=== PATIENT | male | born 1995 | race Caucasian/White ===

== ENCOUNTER 2024-07-23 13:32 | Emergency (ER) | payer OTHER ==
--- OUTSIDE RECORDS SUMMARY | 2024-07-23 13:39 | XMS REPORT | Continuity of Care Document ---
Author Name Unknown Address [address] [facility] [address] [place] [id number] [facility] thconnect Address [address] [facility] [address] [place] [address] Care Team Providers Care [employer] Name Role Phone Margret Eden NP Primary Care Physician Unava ilMargret Canales Attending Clinician Unavailable Selbst Gabe LAWSON Attending Clinician + [phone] GABE GARCIA Attending Clinician Unavail able PHOEN[place] GIBBS Attending Clinician Unavailable [place] GIBBS Attending Clinician Unavailable Doctor Unassigned, [place] Attending Clinician U navailJOSE Cruz Attending Clinician UnavailJose Samson MD Attending Clinician [phone] CHERIE MENDEZ Attending Clinician Unavailable Cherie Mendez MD Attending Clinician [phone] Sabas Barbour Attending Clinician [phone] SABAS WEBB Attending Clinician Unavailable Kyler Ring MD Attending Clinician [phone] KYLER RING Attending Clinician UnavailANDI Lugo Attending Clinician Unavailable [place] B Attending Clinician [phone] RASHAD GALLOWAY Attending Clinician Unavailable Rashad Gonzalez Attending Clinician [phone] PHOENIX GIBBS Admitting Clinician Unavailable JOSE STERN Admitting Clinician UnavailJose Samson MD Admitting Clinician [phone] SABAS WEBB Admitting Clinician Unavailable ANDI ABURTO Admitting Clinician Unavailable Payers Payer Name Policy Type Policy Number Effective Date Expirati on Date Source [employer] \\T\\ STAR [employer] MEDICAID Medicaid [id number] 2019 00:00:00 [facility] (Medicaid) [id number] 2019 00:00:00 [facility] (Medicaid) [id number] 2019 [facility] [id number] 2019 00:00:00 [facility] Problems Condition Name Condition Details Condition Category Status Onset Date Resolution Date Last Treatment Date Treating Clinician Comments Source Obesity (BMI 30-39.9) Obesity (BMI 30-39.9) Disease Active - 00:00: 00 [facility] Closed displaced fracture of nasal bone, initial encounter Closed displaced fracture of nasal bone, initial encounter Disease Active 07-22 00:00: 00 [facility] [id number] Hypertrigl yceridemia Problem [facility] Asthma without status asthmaticu s Active asthma Problem [facility] Obesity Obesity Problem [facility] Migraine Migraine Problem [facility] Depression Depression Problem [facility] Memory problem Memory problem Problem [facility] No known active problems No known active problems Disease [facility] Allergies, Adverse Reactions, Alerts Allergy Name Allergy Type Status Severity Reaction(s) Onset Date Inactive Date Treating Clinician Comments Source Amoxicil spencer Propensi ty to adverse reaction s Active Rash 06-16 00:00: 00 Brea Parker AMOXICIL SPENCER DRUG INGREDI Active Low Rash 06-16 00:00: 00 [facility] AMOXICIL SPENCER DRUG INGREDI Active Rash 03-22 00:00: 00 [facility] Amoxicil spencer Propensi ty to adverse reaction s Active Rash 03-22 00:00: 00 [facility] ALLERGIE S NOT ON FILE SYSTEMIC Active [facility] amoxicil spencer amoxicil spencer Active Bumps on tongue, rash [facility] Social History Social Habit Start Date Stop Date Quantity Comments Source History of Tobacco Use [facility] Sex Assigned At [facility] Gender identity Roberto Parker Sexual orientation [facility] Alcohol intake 2023-11-10 00:00:00 2023-11-10 00:00:00 Lifetime non-drinker (finding) [facility] History of Social function 2023-07-24 00:00:00 2023-07-24 00:00:00 [facility] Exposure to SARS-CoV-2 (event) 2023-03-08 00:00:00 2023-03-18 14:27:00 Not sure [facility] Tobacco use and exposure 2022-11-25 00:00:00 2022-11-25 00:00:00 Smokeless tobacco non-user [facility] Smoking Status Start Date Stop Date Source Tobacco smoking consumption unknown [facility] Never smoked tobacco [facility] Medications Ordered Medication Name Filled Medication Name Start Date Stop Date Current Medication? Ordering Clinician Indication Dosage Frequency Signature (SIG) Comments Components Source doxycycline (Monodox) 100 MG capsule doxycycline (Monodox) 100 MG capsule 06-16 00:00: 00 06-26 23:59 :00 No 100mg Q.5D Take 1 capsule by mouth in the morning and 1 capsule in the evening. Do all this for 10 days. Take with at least 8 ounces (large glass) of water, do not lie down for 30 minutes after. Brea Parker lactated ringers IV infusion 1,000 mL 07-24 22:00: 00 Yes 1000mL at 42 mL/hr, 1,000 mL, IV Infusion, CONTINUOUS , Starting on Ammy 07/24/23 at 1700, Until Discontinu ed, Routine, PACU [facility] HYDROmorpho ne (DILAUDID) injection 0.2 mg 07-24 21:56: 36 Yes .2mg 0.2 mg, Slow IV Push, Q5MIN PRN, 4 doses, Starting on Ammy 07/24/23 at 1656, Until Discontinu ed, Routine, Pain (scale 7-10), PACU
Us e approved by (Faculty): PACU USE -ANESTHESI A SERVICE-HY DROMORPHON E INJECTIONS [facility] FENTanyl PF (SUBLIMAZE (PF)) injection 25 mcg 07-24 21:56: 36 Yes 25ug 25 mcg, Slow IV Push, Q5MIN PRN, 4 doses, Starting on Ammy 07/24/23 at 1656, Until Discontinu ed, Routine, Pain (scale 4-6), PACU [facility] ondansetron (ZOFRAN (PF)) injection 4 mg 07-24 21:56: 36 Yes 4mg 4 mg, Slow IV Push, PRN, 1 dose, Starting on Ammy 07/24/23 at 1656, Until Discontinu ed, Routine, Nausea and Vomiting (N/V), PACU [facility] bacitracin 500 unit/g ointment 30 g tube 07-24 21:26: 00 07-24 23:32 :34 No PRN, Starting on Fri07/24/23 at 1626, Until Ammy 07/24/23 at 1832, Routine, Intra-op [facility] cocaine (NUMBRINO) 4 % nasal solution 07-24 21:25: 00 07-24 23:32 :34 No PRN, Starting on Fri07/24/23 at 1625, Until Ammy 07/24/23 at 1832, Routine, Intra-op [facility] acetaminoph en 500 mg tablet 07-24 00:00: 00 Yes [id number] 1000mg Take 2 tablets by mouth every 8 (eight) hours. [facility] HYDROcodone -acetaminop hen (NORCO) 5-325 mg tablet 07-24 00:00: 00 07-30 04:59 :00 No [id number] 1{tbl} Take 1 tablet by mouth every 6 (six) hours as needed for Pain (scale 7-10) for up to 5 days. Indication s: acute pain [facility] acetaminoph en (TYLENOL) tablet 1,000 mg 07-18 02:45: 00 07-18 02:44 :00 No 1000mg 1,000 mg, Oral, ONCE, 1 dose, On Ammy 07/17/23 at 2145, [facility]ILYN [facility] clindamycin in 5 % dextrose (CLEOCIN) 900 mg/50 mL IV piggyback RTU 900 mg 07-18 02:30: 00 07-18 03:01 :00 No 900mg 900 mg, IV Piggyback, ONCE, 1 dose, On Ammy 07/17/23 at 2130, Administer over 30 Minutes, 50 mL
Reas on for Anti-Infec tive: Documented Infection< br>Documen luli Infection Site: Skin / Soft Tissue
Duration of Therapy: 7 days
Re stricted use approved by: ED PROVIDER [facility] bacitracin 500 unit/gram ointment 07-18 00:00: 00 Yes [id number] Apply to affected area(s) 2 (two) times daily. [facility] clindamycin 300 mg capsule 07-18 00:00: 00 07-26 04:59 :00 No [id number] 300mg Take 1 capsule by mouth 4 (four) times daily for 7 days. [facility] sodium chloride 0.65 % nasal spray 07-18 00:00: 00 07-26 04:59 :00 No [id number] 1{spray } Use 1 [place] in each nostril as needed for Other (clearing nasal draiange) for up to 7 days. [facility] triamcinolo ne acetonide (KENALOG) injection 40 mg 03-18 22:15: 00 03-18 21:14 :00 No [id number] 40mg [facility] meloxicam 15 mg tablet 11-25 00:00: 00 12-26 05:59 :00 No [id number] 15mg Take 1 tablet by mouth in the morning for 30 days. [facility] albuterol 90 mcg/actuati on inhaler 2021-11 00:00: 00 Yes INHALE 1 PUFF BY MOUTH EVERY 6 HOURS NEEDED [facility] Ventolin HFA 108 (90 Base) MCG/ACT Ventolin HFA 108 (90 Base) MCG/ACT 2021-11 00:00: 00 No 1{puff_ as_need ed} QID Ventolin HFA 108 (90 Base) MCG/ACT Ventolin HFA 108 (90 Base) MCG/ACT Ventolin HFA 108 (90 Base) MCG/ACT 2021-11 00:00: 00 No 1{puff_ as_need ed} QID Ventolin HFA 108 (90 Base) MCG/ACT ibuprofen (IBU) tablet 800 mg 2021-11 15:00: 00 11-05 14:52 :00 No 800mg 800 mg, Oral, ONCE, 1 dose, On Fri11/05/22 at 0900, [facility] No known medications 2021-11 08:42: 40 No No known medication s [facility] No known medications 03-22 21:23: 46 No [facility] Nebulizer/T ubing/Mouth piece - Nebulizer/T ubing/Mouth piece - 03-16 00:00: 00 No Nebulizer/ Tubing/Dede thpiece - Nebulizer/T ubing/Mouth piece - Nebulizer/T ubing/Mouth piece - 03-16 00:00: 00 No Nebulizer/ Tubing/Dede thpiece - Nebulizer/T ubing/Mouth piece - Nebulizer/T ubing/Mouth piece - 03-16 00:00: 00 No Nebulizer/ Tubing/Dede thpiece - Nebulizer/T ubing/Mouth piece - Nebulizer/T ubing/Mouth piece - 03-16 00:00: 00 No Nebulizer/ Tubing/Dede thpiece - Nebulizer/T ubing/Mouth piece - Nebulizer/T ubing/Mouth piece - 03-16 00:00: 00 No Nebulizer/ Tubing/Dede thpiece - Nebulizer/T ubing/Mouth piece - Nebulizer/T ubing/Mouth piece - 03-16 00:00: 00 No Nebulizer/ Tubing/Dede thpiece - Nebulizer/T ubing/Mouth piece - Nebulizer/T ubing/Mouth piece - 03-16 00:00: 00 No Nebulizer/ Tubing/Dede thpiece - ProAir HFA ProAir HFA 03-05 00:00: 00 Yes Margret Vernonok 2 puffs as needed [facility] ProAir HFA 108 (90 Base) MCG/ACT ProAir HFA 108 (90 Base) MCG/ACT 03-05 00:00: 00 No 2{puffs _as_nee ded} QID ProAir HFA 108 (90 Base) MCG/ACT Albuterol Sulfate Albuterol Sulfate Yes Margret Blackford 1 ml as needed [facility] Singulair Singulair Yes Margret Vernonok 1 tablet in the evening [facility] Singulair 10 MG Singulair 10 MG No 1{table t_in_th e_eveni ng} QD Singulair 10 MG Albuterol Sulfate (5 MG/ML) 0.5% Albuterol Sulfate (5 MG/ML) 0.5% No 3{ml_as _needed } TID Albuterol Sulfate (5 MG/ML) 0.5% ProAir HFA 108 (90 Base) MCG/ACT ProAir HFA 108 (90 Base) MCG/ACT No 2{puffs _as_nee ded} QID ProAir HFA 108 (90 Base) MCG/ACT Singulair 10 MG Singulair 10 MG No 1{table t_in e_eveni ng} QD Singulair 10 MG Albuterol Sulfate (5 MG/ML) 0.5% Albuterol Sulfate (5 MG/ML) 0.5% No 3{ml_as _needed } TID Albuterol Sulfate (5 MG/ML) 0.5% ProAir HFA 108 (90 Base) MCG/ACT ProAir HFA 108 (90 Base) MCG/ACT No 2{puffs _as_nee ded} QID ProAir HFA 108 (90 Base) MCG/ACT Symbicort 160-4.5 MCG/ACT Symbicort 160-4.5 MCG/ACT No Symbicort 160-4.5 MCG/ACT ProAir HFA 108 (90 Base) MCG/ACT ProAir HFA 108 (90 Base) MCG/ACT No ProAir HFA 108 (90 Base) MCG/ACT Albuterol Sulfate (5 MG/ML) 0.5% Albuterol Sulfate (5 MG/ML) 0.5% No 3{ml_as _needed } TID Albuterol Sulfate (5 MG/ML) 0.5% Singulair 10 MG Singulair 10 MG No 1{table t_in e_eveni ng} QD Singulair 10 MG Symbicort 160-4.5 MCG/ACT Symbicort 160-4.5 MCG/ACT No 2{puffs } BID Symbicort 160-4.5 MCG/ACT ProAir HFA 108 (90 Base) MCG/ACT ProAir HFA 108 (90 Base) MCG/ACT No ProAir HFA 108 (90 Base) MCG/ACT Albuterol Sulfate (5 MG/ML) 0.5% Albuterol Sulfate (5 MG/ML) 0.5% No 3{ml_as _needed } TID Albuterol Sulfate (5 MG/ML) 0.5% Singulair 10 MG Singulair 10 MG No 1{table t_in e_eveni ng} QD Singulair 10 MG Ventolin HFA 108 (90 Base) MCG/ACT Ventolin HFA 108 (90 Base) MCG/ACT No 1{puff_ as_need ed} QID Ventolin HFA 108 (90 Base) MCG/ACT Singulair 10 MG Singulair 10 MG No 1{table t_in_th e_eveni ng} QD Singulair 10 MG Symbicort 160-4.5 MCG/ACT Symbicort 160-4.5 MCG/ACT No 2{puffs } BID Symbicort 160-4.5 MCG/ACT Albuterol Sulfate (2.5 MG/3ML) 0.083% Albuterol Sulfate (2.5 MG/3ML) 0.083% No 3{ml_as _needed } QID Albuterol Sulfate (2.5 MG/3ML) 0.083% Ventolin HFA 108 (90 Base) MCG/ACT Ventolin HFA 108 (90 Base) MCG/ACT No 1{puff_ as_need ed} QID Ventolin HFA 108 (90 Base) MCG/ACT Singulair 10 MG Singulair 10 MG No 1{table t_in e_eveni ng} QD Singulair 10 MG Symbicort 160-4.5 MCG/ACT Symbicort 160-4.5 MCG/ACT No 2{puffs } BID Symbicort 160-4.5 MCG/ACT Albuterol Sulfate (2.5 MG/3ML) 0.083% Albuterol Sulfate (2.5 MG/3ML) 0.083% No 3{ml_as _needed } QID Albuterol Sulfate (2.5 MG/3ML) 0.083% Symbicort 160-4.5 MCG/ACT Symbicort 160-4.5 MCG/ACT No 2{puffs } BID Symbicort 160-4.5 MCG/ACT Singulair 10 MG Singulair 10 MG No 1{table t_in e_eveni ng} QD Singulair 10 MG Ventolin HFA 108 (90 Base) MCG/ACT Ventolin HFA 108 (90 Base) MCG/ACT No 1{puff_ as_need ed} QID Ventolin HFA 108 (90 Base) MCG/ACT Comp Air Compressor Nebulizer - Comp Air Compressor Nebulizer - No Comp Air Compressor Nebulizer - Albuterol Sulfate (2.5 MG/3ML) 0.083% Albuterol Sulfate (2.5 MG/3ML) 0.083% No 3{ml_as _needed } QID Albuterol Sulfate (2.5 MG/3ML) 0.083% Symbicort 160-4.5 MCG/ACT Symbicort 160-4.5 MCG/ACT No 2{puffs } BID Symbicort 160-4.5 MCG/ACT Singulair 10 MG Singulair 10 MG No 1{table t_in e_eveni ng} QD Singulair 10 MG Ventolin HFA 108 (90 Base) MCG/ACT Ventolin HFA 108 (90 Base) MCG/ACT No 1{puff_ as_need ed} QID Ventolin HFA 108 (90 Base) MCG/ACT Comp Air Compressor Nebulizer - Comp Air Compressor Nebulizer - No Comp Air Compressor Nebulizer - Albuterol Sulfate (2.5 MG/3ML) 0.083% Albuterol Sulfate (2.5 MG/3ML) 0.083% No 3{ml_as _needed } QID Albuterol Sulfate (2.5 MG/3ML) 0.083% Albuterol Sulfate (2.5 MG/3ML) 0.083% Albuterol Sulfate (2.5 MG/3ML) 0.083% No 3{ml_as _needed } QID Albuterol Sulfate (2.5 MG/3ML) 0.083% Ventolin HFA 108 (90 Base) MCG/ACT Ventolin HFA 108 (90 Base) MCG/ACT No 1{puff_ as_need ed} QID Ventolin HFA 108 (90 Base) MCG/ACT Albuterol Sulfate (5 MG/ML) 0.5% Albuterol Sulfate (5 MG/ML) 0.5% No 3{ml_as _needed } TID Albuterol Sulfate (5 MG/ML) 0.5% Symbicort 160-4.5 MCG/ACT Symbicort 160-4.5 MCG/ACT No 2{puffs } BID Symbicort 160-4.5 MCG/ACT Comp Air Compressor Nebulizer - Comp Air Compressor Nebulizer - No Comp Air Compressor Nebulizer - Singulair 10 MG Singulair 10 MG No 1{table t_in e_eveni ng} QD Singulair 10 MG Singulair 10 MG Singulair 10 MG No 1{table t_in_th e_eveni ng} QD Singulair 10 MG Albuterol Sulfate (5 MG/ML) 0.5% Albuterol Sulfate (5 MG/ML) 0.5% No 3{ml_as _needed } TID Albuterol Sulfate (5 MG/ML) 0.5% Symbicort 160-4.5 MCG/ACT Symbicort 160-4.5 MCG/ACT No 2{puffs } BID Symbicort 160-4.5 MCG/ACT Albuterol Sulfate (5 MG/ML) 0.5% Albuterol Sulfate (5 MG/ML) 0.5% No 3{ml_as _needed } TID Albuterol Sulfate (5 MG/ML) 0.5% Symbicort 160-4.5 MCG/ACT Symbicort 160-4.5 MCG/ACT 05-30 00:00 :00 No 2{puffs } BID Symbicort 160-4.5 MCG/ACT Immunizations Ordered Immunization Name Filled Immunization Name Date Status Comments Source Flucelvax - multidose vial Flucelvax - multidose vial 2018-09-25 11:58:00 Completed [facility] Flucelvax - multidose vial Flucelvax - multidose vial 2018-09-25 11:58:00 Completed [facility] Flucelvax - multidose vial Flucelvax - multidose vial 2018-09-25 11:58:00 Completed [facility] Flucelvax - multidose vial Flucelvax - multidose vial 2018-09-25 11:58:00 Completed [facility] Flucelvax - multidose vial Flucelvax - multidose vial 2018-09-25 11:58:00 Completed [facility] Flucelvax - multidose vial Flucelvax - multidose vial 2018-09-25 11:58:00 Completed [facility] Flucelvax - multidose vial Flucelvax - multidose vial 2018-09-25 11:58:00 Completed [facility] Flucelvax - multidose vial Flucelvax - multidose vial 2018-09-25 11:58:00 Completed [facility] Flucelvax - multidose vial Flucelvax - multidose vial 2018-09-25 11:58:00 Completed [facility] Flucelvax - multidose vial Flucelvax - multidose vial 2018-09-25 11:58:00 Completed [facility] Flucelvax - multidose vial Flucelvax - multidose vial 2018-09-25 11:58:00 Completed [facility] Flucelvax - multidose vial Flucelvax - multidose vial Unknown Completed [facility] Flucelvax - multidose vial Flucelvax - multidose vial Unknown Completed [facility] Flucelvax (ccIIV4) - MDV - 0.5mL Flucelvax (ccIIV4) - MDV - 0.5mL Unknown Completed [facility] Flucelvax (ccIIV4) - MDV - 0.5mL Flucelvax (ccIIV4) - MDV - 0.5mL Unknown Completed [facility] Flucelvax (ccIIV4) - MDV - 0.5mL Flucelvax (ccIIV4) - MDV - 0.5mL Unknown Completed [facility] Flucelvax (ccIIV4) - MDV - 0.5mL Flucelvax (ccIIV4) - MDV - 0.5mL Unknown Completed [facility] Vital Signs Vital Name Observation Time Observation Value Comments S ource height 2024-03-15 09:40:00 71.5 [in_i] Comm on [facility] weight 2024-03-15 09:40:00 269.4 [lb_av] Co mmon [facility] temperature 2024-03-15 09:40:00 98.1 [degF] Com mon [facility] bmi 2024-03-15 09:40:00 37.05 kg/m2 Comm on [facility] oximetry 2024-03-15 09:40:00 97 % Commo n [facility] respiratory rate 2024-03-15 09:40:00 15 /min Common [facility] blood pressure systolic 2024-03-15 09:40:00 126 mm[Hg] [facility] blood pressure diastolic 2024-03-15 09:40:00 80 mm[Hg] [facility] Systolic blood pressure 2023-11-10 19:01:00 144 mm[Hg] [facility] Diastolic blood pressure 2023-11-10 19:01:00 85 mm[Hg] [facility] Heart rate 2023-11-10 19:01:00 78 /min [facility] Body temperature 2023-11-10 19:00:00 36.72 Iris [facility] Respiratory rate 2023-11-10 19:00:00 18 /min [facility] Body height 2023-11-10 19:00:00 185.4 cm [facility] Body weight 2023-11-10 19:00:00 121.882 kg [facility] BMI 2023-11-10 19:00:00 35.45 kg/m2 [facility] Oxygen saturation in Arterial blood by Pulse oximetry 2023-11-10 19:00:00 98 /min [facility] height 2023-09-12 10:20:00 71.5 [in_i] Comm on [facility] weight 2023-09-12 10:20:00 276.0 [lb_av] Co mmon [facility] temperature 2023-09-12 10:20:00 98.4 [degF] Com mon [facility] bmi 2023-09-12 10:20:00 37.95 kg/m2 Comm on [facility] oximetry 2023-09-12 10:20:00 95 % Commo n [facility] respiratory rate 2023-09-12 10:20:00 16 /min [facility] blood pressure systolic 2023-09-12 10:20:00 138 mm[Hg] [facility] blood pressure diastolic 2023-09-12 10:20:00 84 mm[Hg] [facility] Systolic blood pressure 2023-08-19 13:18:00 129 mm[Hg] [facility] Diastolic blood pressure 2023-08-19 13:18:00 76 mm[Hg] [facility] Heart rate 2023-08-19 13:18:00 73 /min Unive [facility] Body temperature 2023-08-19 13:18:00 36.67 Iris [facility] Respiratory rate 2023-08-19 13:18:00 18 /min [facility] Body height 2023-08-19 13:18:00 185.4 cm Univ [facility] Body weight 2023-08-19 13:18:00 121.655 kg [facility] BMI 2023-08-19 13:18:00 35.38 kg/m2 [facility] Oxygen saturation in Arterial blood by Pulse oximetry 2023-08-19 13:18:00 98 /min [facility] Systolic blood pressure 2023-08-05 13:05:00 115 mm[Hg] [facility] Diastolic blood pressure 2023-08-05 13:05:00 75 mm[Hg] [facility] Systolic blood pressure 2023-08-05 13:05:00 115 mm[Hg] [facility] Diastolic blood pressure 2023-08-05 13:05:00 75 mm[Hg] [facility] Heart rate 2023-08-05 13:04:00 77 /min [facility] Body temperature 2023-08-05 13:04:00 36.67 Iris [facility] Respiratory rate 2023-08-05 13:04:00 18 /min [facility] Body height 2023-08-05 13:04:00 185.4 cm Univ [facility] Body weight 2023-08-05 13:04:00 121.745 kg Univ [facility] BMI 2023-08-05 13:04:00 35.41 kg/m2 [facility] Oxygen saturation in Arterial blood by Pulse oximetry 2023-08-05 13:04:00 99 /min [facility] Heart rate 2023-08-05 13:04:00 77 /min [facility] Body temperature 2023-08-05 13:04:00 36.67 Iris [facility] Respiratory rate 2023-08-05 13:04:00 18 /min [facility] Body height 2023-08-05 13:04:00 185.4 cm [facility] Body weight 2023-08-05 13:04:00 121.745 kg [facility] BMI 2023-08-05 13:04:00 35.41 kg/m2 [facility] Oxygen saturation in Arterial blood by Pulse oximetry 2023-08-05 13:04:00 99 /min [facility] Systolic blood pressure 2023-07-24 22:45:00 153 mm[Hg] [facility] Diastolic blood pressure 2023-07-24 22:45:00 83 mm[Hg] [facility] Respiratory rate 2023-07-24 22:45:00 18 /min [facility] Oxygen saturation in Arterial blood by Pulse oximetry 2023-07-24 22:45:00 93 /min [facility] Heart rate 2023-07-24 22:03:00 71 /min [facility] Body temperature 2023-07-24 22:03:00 36.5 Iris [facility] Body height 2023-07-24 15:19:00 188 cm [facility] Body weight 2023-07-24 15:19:00 120.2 kg [facility] BMI 2023-07-24 15:19:00 34.02 kg/m2 [facility] Systolic blood pressure 2023-07-24 15:19:00 137 mm[Hg] [facility] Diastolic blood pressure 2023-07-24 15:19:00 78 mm[Hg] [facility] Heart rate 2023-07-24 15:19:00 73 /min [facility] Body temperature 2023-07-24 15:19:00 36.94 Iris [facility] Respiratory rate 2023-07-24 15:19:00 18 /min [facility] Body height 2023-07-24 15:19:00 188 cm Univ [facility] Body weight 2023-07-24 15:19:00 120.2 kg Univ [facility] BMI 2023-07-24 15:19:00 34.02 kg/m2 [facility] Oxygen saturation in Arterial blood by Pulse oximetry 2023-07-24 15:19:00 98 /min [facility] Systolic blood pressure 2023-07-22 14:22:00 131 mm[Hg] [facility] Diastolic blood pressure 2023-07-22 14:22:00 79 mm[Hg] [facility] Heart rate 2023-07-22 14:22:00 76 /min [facility] Body temperature 2023-07-22 14:22:00 36.5 Iris [facility] Respiratory rate 2023-07-22 14:22:00 18 /min [facility] Body height 2023-07-22 14:22:00 185.4 cm Univ [facility] Body weight 2023-07-22 14:22:00 122.607 kg [facility] BMI 2023-07-22 14:22:00 35.66 kg/m2 [facility] Oxygen saturation in Arterial blood by Pulse oximetry 2023-07-22 14:22:00 96 /min [facility] Systolic blood pressure 2023-07-18 06:08:00 138 mm[Hg] [facility] Diastolic blood pressure 2023-07-18 06:08:00 80 mm[Hg] [facility] Heart rate 2023-07-18 06:08:00 72 /min [facility] Body temperature 2023-07-18 06:08:00 36.72 Iris [facility] Respiratory rate 2023-07-18 06:08:00 18 /min [facility] Body weight 2023-07-18 06:08:00 117.935 kg [facility] BMI 2023-07-18 06:08:00 34.30 kg/m2 [facility] Oxygen saturation in Arterial blood by Pulse oximetry 2023-07-18 06:08:00 100 /min [facility] Heart rate 2023-07-18 05:00:00 106 /min [facility] Body temperature 2023-07-18 05:00:00 36.94 Iris [facility] Oxygen saturation in Arterial blood by Pulse oximetry 2023-07-18 05:00:00 98 /min [facility] Systolic blood pressure 2023-07-18 04:00:00 138 mm[Hg] [facility] Diastolic blood pressure 2023-07-18 04:00:00 78 mm[Hg] [facility] Respiratory rate 2023-07-18 04:00:00 16 /min [facility] Body height 2023-07-18 00:18:00 185.4 cm [facility] Body weight 2023-07-18 00:18:00 131.543 kg [facility] BMI 2023-07-18 00:18:00 38.26 kg/m2 [facility] Body height 2023-03-18 19:32:00 180.3 cm [facility] Body weight 2023-03-18 19:32:00 131.226 kg [facility] BMI 2023-03-18 19:32:00 40.35 kg/m2 [facility] height 2023-03-13 10:40:00 71.5 [in_i] Comm on [facility] weight 2023-03-13 10:40:00 295.8 [lb_av] Co [facility] temperature 2023-03-13 10:40:00 97.8 [degF] Com [facility] bmi 2023-03-13 10:40:00 40.68 kg/m2 Comm [facility] oximetry 2023-03-13 10:40:00 95 % [facility] respiratory rate 2023-03-13 10:40:00 16 /min [facility] blood pressure systolic 2023-03-13 10:40:00 136 mm[Hg] [facility] blood pressure diastolic 2023-03-13 10:40:00 80 mm[Hg] [facility] Systolic blood pressure 2022-11-25 21:35:00 122 mm[Hg] [facility] Diastolic blood pressure 2022-11-25 21:35:00 71 mm[Hg] [facility] Heart rate 2022-11-25 21:35:00 91 /min [facility] Body height 2022-11-25 21:35:00 182.9 cm [facility] Body weight 2022-11-25 21:35:00 108.863 kg [facility] BMI 2022-11-25 21:35:00 32.55 kg/m2 [facility] Systolic blood pressure 2022-11-05 14:49:00 169 mm[Hg] [facility] Diastolic blood pressure 2022-11-05 14:49:00 103 mm[Hg] [facility] Heart rate 2022-11-05 14:49:00 99 /min [facility] Body temperature 2022-11-05 14:49:00 36.61 Iris [facility] Respiratory rate 2022-11-05 14:49:00 18 /min [facility] Body height 2022-11-05 14:49:00 182.9 cm [facility] Body weight 2022-11-05 14:49:00 108.863 kg [facility] BMI 2022-11-05 14:49:00 32.55 kg/m2 [facility] Oxygen saturation in Arterial blood by Pulse oximetry 2022-11-05 14:49:00 99 /min [facility] height 2022-08-27 09:40:00 71.5 [in_i] [facility] weight 2022-08-27 09:40:00 255.2 [lb_av] [facility] temperature 2022-08-27 09:40:00 97.2 [degF] Com [facility] bmi 2022-08-27 09:40:00 35.09 kg/m2 [facility] oximetry 2022-08-27 09:40:00 98 % [facility] respiratory rate 2022-08-27 09:40:00 16 /min [facility] blood pressure systolic 2022-08-27 09:40:00 135 mm[Hg] [facility] blood pressure diastolic 2022-08-27 09:40:00 73 mm[Hg] [facility] Systolic blood pressure 2022-03-23 02:10:00 179 mm[Hg] [facility] Diastolic blood pressure 2022-03-23 02:10:00 84 mm[Hg] [facility] Heart rate 2022-03-23 02:10:00 85 /min [facility] Body temperature 2022-03-23 02:10:00 36.06 Iris [facility] Respiratory rate 2022-03-23 02:10:00 17 /min [facility] Body height 2022-03-23 02:10:00 182.9 cm [facility] Body weight 2022-03-23 02:10:00 108.863 kg [facility] BMI 2022-03-23 02:10:00 32.55 kg/m2 [facility] Oxygen saturation in Arterial blood by Pulse oximetry 2022-03-23 02:10:00 99 /min [facility] blood pressure systolic 2022-02-25 09:40:00 137 mm[Hg] [facility] blood pressure diastolic 2022-02-25 09:40:00 62 mm[Hg] [facility] height 2022-02-25 09:40:00 71.5 [in_i] [facility] weight 2022-02-25 09:40:00 272 [lb_av] [facility] temperature 2022-02-25 09:40:00 98.2 [degF] Com [facility] bmi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 the patient or legally responsible person prior to obtaining consent: the risks, potential benefits and drawbacks, significant alternatives, potential for problems related to recuperation, likelihood of success, and possible results of non-treatment, and the patient or the legally responsible person has agreed to proceed. [id number] 14:16:15 [facility] [id number] 14:16:15 Diagnosis Abnormal foot finding - Julio walker [facility] HospitalRywhqiy2960-30-02 14:16:15 [facility] [id number] 11:04:41* Gabe Garcia DPM - 06/16/2024 10:00 AM CDT Chief Complaints: RIGHT LATERAL HALLUX nail ingrown. History of present illness: Patient states INGROWN NAIL, RIGHT LATERAL HALLUX , starting approximately OCTOBER 2024 Patient states he has not seen a specialist or primary care doctor 4th the wound Patient denies systemic signs of infection. Patient states pain is currently rated 4/10 on palpation, ingrown nail border Objective: Examination of the lower extremity: Vascular (+) edema, Localized to the ingrown nail border (+) erythema, Localized to the ingrown nail border (-) ecchymosis (+) 2/4 pedal pulses, bilateral (+) Capillary Refill time: within normal limits (-) varicosities (+) pedal hair growth. Neurological (+) sensation with 5.07 [place] Sylwia monofilament examination to the most distal lower extremity (-) clonus present (-) tinel's sign. Dermatological (+) signs of soft tissue infection localized to the ingrown nail border, (+) paronychia (-) open wounds, (-) macerations, (-) ischemic tissue, (-) drainage/abscess (-) other primary or secondary lesions (+) normal temperature when compared to contralateral limb (+) normal color, tugor, and elasticity. Musculoskeletal (+) pain to ingrown nail border, (-) other pain on palpation or with range of motion throughout the remainder of the lower extremity, 5/5 muscle strength to extrinsic pedal muscle groups (-) evidence of compartment syndrome, (-) evidence of deep vein thrombosis. Assessment: Ingrown nail with paronychia. --- Decreased cognitive function Treatment: -Extensive visit WITH MOTHER and patient agrees to treatment plan after thoroughly discussing risks, complciations, benefits, alternatives related to this ingrown nail. -Will start oral antibiotics prophylactically in attempts to treat the ingrown nail with conservative treatments before considering surgical intervention - Antibiotics - PRESCRIBED 06/16 DOXY ( amoxicillin allergy) - Pain - controlled with over the counter Tylenol - Wound - Cleanse and bandage with triple antibiotic ointment, daily. Soak daily in Epsom salt, written and verbal instruction dispensed. - Culture - Due to lack of specimen, no culture could be obtained. - X-RAYS - ORDERED 06/16 - Weight bearing - as tolerated in protected shoes. - Return in 1 week for INGROWN NAIL PROCEDURE Patient advised to report to my clinic or the emergency room immediately with any questions or concerns. Patient Instructions: Discussion: A detailed discussion was provided to the patient with specific reference to etiology, pathology, alternate treatment options, and prognosis. All risks and complications (including side effects) with each treatment/medication alternative were outlined in detail including but not limited to: Pain, swelling, numbness, loss of function, loss of limb, loss of life, bleeding, blood clot, embolism, hematoma, scarring, worsening of condition, failure to relieve condition, surgery, over/under correction from procedure, additional/revisional surgery, reflex sympathetic dystrophy, complex regional pain syndrome, reoccurrence of deformity, joint, stiffness, flail toe, bone and/or soft tissue infection, blood clots, pulmonary embolism, possible , delayed or non-healing. X-rays, graphs and drawings were all used to assist with patient comprehension when appropriate. All patients questions were answered and stated they fully understood. No guarantee as to results or outcome of treatment was made. I have discussed with the patient or legally responsible person prior to obtaining consent: the risks, potential benefits and drawbacks, significant alternatives, potential for problems related to recuperation, likelihood of success, and possible results of non-treatment, and the patient or the legally responsible person has agreed to proceed Vil[place] [facility] [id number] 11:04:41Upcoming Encounters Health Maintenance Due Date Last Done Comments Varicella Vaccines (1 of 2 - 13+ 2-dose series) 2009 DTaP/Tdap/Td Vaccines (1 - Tdap) 2015 Hepatitis B Vaccines (1 of 3 - 19+ 3-dose series) 2015 Influenza Vaccine (#1) 2024 HIB Vaccines Aged Out No longer eligi ble based on patient's age to complete this topic HPV Vaccines Aged Out No longer eligi ble based on patient's age to complete this topic Hepatitis A Vaccines Aged Out No long er eligible based on patient's age to complete this topic IPV Vaccines Aged Out No longer eligi ble based on patient's age to complete this topic Meningococcal Vaccine Aged Out No reji ashly eligible based on patient's age to complete this topic Pneumococcal Vaccine: Pediat rics (0 to 5 Years) and At-Risk Patients (6 to 64 Years) Aged Out No longer eligible b ased on patient's age to complete this topic Rotavirus Vaccines Aged Out No longer eligible based on patient's age to complete this topic [place] [id number] 11:04:41 Diagnosis Abnormal foot finding - [place] [id number] 11:04:41 [place] [id number] 11:04:40 Diagnosis Abnormal foot finding - [facility]2024-07-24 11:04:40 [place] [id number] 11:04:40* Gabe Garcia, [facility] - 06/16/2024 10:00 AM CDT Chief Complaints: RIGHT LATERAL HALLUX nail ingrown. History of present illness: Patient states INGROWN NAIL, RIGHT LATERAL HALLUX , starting approximately OCTOBER 2024 Patient states he has not seen a specialist or primary care doctor 4th the wound Patient denies systemic signs of infection. Patient states pain is currently rated 4/10 on palpation, ingrown nail border Objective: Examination of the lower extremity: Vascular (+) edema, Localized to the ingrown nail border (+) erythema, Localized to the ingrown nail border (-) ecchymosis (+) 2/4 pedal pulses, bilateral (+) Capillary Refill time: within normal limits (-) varicosities (+) pedal hair growth. Neurological (+) sensation with 5.07 [place] Sylwia monofilament examination to the most distal lower extremity (-) clonus present (-) tinel's sign. Dermatological (+) signs of soft tissue infection localized to the ingrown nail border, (+) paronychia (-) open wounds, (-) macerations, (-) ischemic tissue, (-) drainage/abscess (-) other primary or secondary lesions (+) normal temperature when compared to contralateral limb (+) normal color, tugor, and elasticity. Musculoskeletal (+) pain to ingrown nail border, (-) other pain on palpation or with range of motion throughout the remainder of the lower extremity, 5/5 muscle strength to extrinsic pedal muscle groups (-) evidence of compartment syndrome, (-) evidence of deep vein thrombosis. Assessment: Ingrown nail with paronychia. --- Decreased cognitive function Treatment: -Extensive visit WITH MOTHER and patient agrees to treatment plan after thoroughly discussing risks, complciations, benefits, alternatives related to this ingrown nail. -Will start oral antibiotics prophylactically in attempts to treat the ingrown nail with conservative treatments before considering surgical intervention - Antibiotics - PRESCRIBED 06/16 DOXY ( amoxicillin allergy) - Pain - controlled with over the counter Tylenol - Wound - Cleanse and bandage with triple antibiotic ointment, daily. Soak daily in Epsom salt, written and verbal instruction dispensed. - Culture - Due to lack of specimen, no culture could be obtained. - X-RAYS - ORDERED 06/16 - Weight bearing - as tolerated in protected shoes. - Return in 1 week for INGROWN NAIL PROCEDURE Patient advised to report to my clinic or the emergency room immediately with any questions or concerns. Patient Instructions: Discussion: A detailed discussion was provided to the patient with specific reference to etiology, pathology, alternate treatment options, and prognosis. All risks and complications (including side effects) with each treatment/medication alternative were outlined in detail including but not limited to: Pain, swelling, numbness, loss of function, loss of limb, loss of life, bleeding, blood clot, embolism, hematoma, scarring, worsening of condition, failure to relieve condition, surgery, over/under correction from procedure, additional/revisional surgery, reflex sympathetic dystrophy, complex regional pain syndrome, reoccurrence of deformity, joint, stiffness, flail toe, bone and/or soft tissue infection, blood clots, pulmonary embolism, possible , delayed or non-healing. X-rays, graphs and drawings were all used to assist with patient comprehension when appropriate. All patients questions were answered and stated they fully understood. No guarantee as to results or outcome of treatment was made. I have discussed with the patient or legally responsible person prior to obtaining consent: the risks, potential benefits and drawbacks, significant alternatives, potential for problems related to recuperation, likelihood of success, and possible results of non-treatment, and the patient or the legally responsible person has agreed to proceed [facility] [id number] 11:04:40Upcoming Encounters Health Maintenance Due Date Last Done Comments Varicella Vaccines (1 of 2 - 13+ 2-dose series) 2009 DTaP/Tdap/Td Vaccines (1 - Tdap) 2015 Hepatitis B Vaccines (1 of 3 - 19+ 3-dose series) 2015 Influenza Vaccine (#1) 2024 HIB Vaccines Aged Out No longer eligi ble based on patient's age to complete this topic HPV Vaccines Aged Out No longer eligi ble based on patient's age to complete this topic Hepatitis A Vaccines Aged Out No long er eligible based on patient's age to complete this topic IPV Vaccines Aged Out No longer eligi ble based on patient's age to complete this topic Meningococcal Vaccine Aged Out No reji ashly eligible based on patient's age to complete this topic Pneumococcal Vaccine: Pediat rics (0 to 5 Years) and At-Risk Patients (6 to 64 Years) Aged Out No longer eligible b ased on patient's age to complete this topic Rotavirus Vaccines Aged Out No longer eligible based on patient's age to complete this topic [facility] [id number] 16:11:00 Brief Operative Note 07/24/2023 Faculty Surgeon: Phoenix Gibbs Resident Surgeon(s): Shayne Bhakta MD, Monserrat Yoon MD Anesthesia: General - GETA Preoperative Diagnosis: Depressed nasal bone fracture, Deviated septum Postoperative Diagnosis: Depressed nasal bone fracture, Deviated septum Procedure: Closed Nasal Bone Fracture Implants: * No implants in log * Specimens: * No specimens in log * Findings: Deviated septum to the left Complications: None Fluids: Refer to anesthesia report EBL: 2 cc UOP: No galloway inserted Drain: None Dispo: Discharged home Specific Postop Instructions: - Keep splint site clean, dry and intact until follow up visit - No soaking in bath, pool, or ocean until wounds healed - A slight amount of bleeding is normal for the first few days following surgery. Seek medical attention for: excessuve bleeding, fever >101.5 F, increasing warmth, redness, swelling, purulent drainage from nose, or anything that may be concerning. -Keep HOB elevated to 30 degrees - Open mouthed sneezing - Suction as needed - No "nose blowing" - Do not bend over or strain. MEDICATIONS: - Nucla 5/325 mg PO Q6H as needed for pain - Continue to take your previously prescribed Clindamycin FOLLOW UP - Follow up in clinic on 08/05/[address] Gibbs Please see full dictated note by Monserrat Yoon MD. Monserrat Yoon MD, BSN, superintendent overhead distribution | PGY-2 [place] [address]-08-25 04:08:29 Discharge instructions reviewed with patient. Prescription medication and follow up care discussed.All questions answered by RN. Patient ambulatory to [facility]. Patient in possession of all belongings.RR even and unlabored, VSS, NAD noted. [facility] Magi Adams [place] [address]-08-25 03:11:33 Plastics at bedside. [place] [address]-08-25 01:24:13 Assumed care of patient at this time. Pt reports he was cranking the tommie on an RV camper and the entire tommie mechanism broke off and struck pt in the face. Patient transferred here from [place]. Awaiting plastics eval at this time. Swelling noted to nose and right side of face. Pt maintaining secretions. Assessment: Pt is A&O x 4, respirations even and unlabored , Bilat breath sounds CTA in all lobes, abd soft, flat and non-tender. Skin is warm & dry, cap refill < 3 seconds. Pt's demeanor calm and cooperative. Analia Pena [place] [id number] 01:17:14 Plastics returned page. Sari Preciado [place] [address]-08-25 01:11:45 Plastics MD paged @ [phone] awaiting call back. [place] [id number] 01:07:58 Ced Castillo is a 27 year old male presents to the ED via EMS as a transfer from [facility] for plastics consult. Patient reports working on RV and bounced back and it patient in face. -LOC and arrives withmultiple facial fractures. ADMINISTRATIVE OFFICE ASSISTANT patient had PIV placed in RAC and was medicated with 900 mg cleocin and 1 g IV tylenol. Patient AAOx4, VSS, RR e/u, and NAD noted. Patient to room for further eval. Charlotte Barcenas [place] [address]-08-25 00:02:15 Pt leaving ED, patient care transferred to EMS staff at this time. Rosa Elena Casas [place] [address]-08-25 00:02:[address] [facility] ER for diagnosis of facial injury and open fracture of other facial bones. Patient agrees to admission, discussed plan of care with patient and family. Patient is awake, A&Ox 4, RR even and unlabored on RA. Color appropriate for race. PIV intact x1. No adverse reaction to medications administered while in ED. Belongings with patient to unit. [place] [address]-08-24 23:59:13 Report handed over to [facility] staff for transfer. [place] [address]-08-24 23:30:[address] resulted before assuming care. [place] [address]-08-24 23:17:10 Nurse Report Report given to Mandy THOMAS. Chief complaint, assessment findings, infusion verify and orders reviewed. Rosa Elena Casas RN T [place] [address]-08-24 20:14:00 Pt upgraded to level 3 d/t multiple facial/nasal fx. [place] [address]-08-24 19:07:06 Pt presents with nose injury that occurred around 445. Pt was working on travel trailer sprung backand hit him in face. Pt also has swollen right eye. Pt father witnessed injury and reports no LOC. Pt has had a previous nose injury and has no cartilage on left side of nose. Small 1cm lac to nose, bleeding controlled. Pt reports being UTD on tdap. Tylenol at 450 T Linda Hagen [place] [address]-08-24 18:52:00 Demographics Patient Name: Ced Castillo Date of : 1995 27 year old Treatment Room: [place] [address] Primary Care Physician: [facility] Patient Escorted by: Family [5] Mode of Arrival: Personal means [1] EMS Treatment Prior to ED Arrival: ADMINISTRATIVE OFFICE ASSISTANT treatment comments: tylenol at 450 ED Events Date/Time Event User Comments 07/17/231909 Medical Screening Begins CHERIE MENDEZ MD -- 07/17/231909 First Provider Evaluation CHERIE MENDEZ MD -- Chief complaint Chief Complaint Patient presents with Other Nose injury; right eye swollen ED Triage Notes Linda Hagen RN 07/17/2023 19:16 Pt presents with nose injury that occurred around 445. Pt was working on travel trailer sprung backand hit him in face. Pt also has swollen right eye. Pt father witnessed injury and reports no LOC. Pt has had a previous nose injury and has no cartilage on left side of nose. Small 1cm lac to nose, bleeding controlled. Pt reports being UTD on tdap. Tylenol at 450 Original note by Linda Hagen RN at 07/17/2023 19:14 Chief Complaint Patient presents with Other Nose injury; right eye swollen History of present illness HPI 27 yo man comes to the ED complaining of nose injury. Patient was working on his travel trailer andaccidentally got hit in the face sustaining a small laceration to nose and swelling to face. No LOC, reports previous injury to nose. No other injuries. Past Medical and Social History History reviewed. No pertinent past medical history. Tetanus received in last 5 years: Yes Social History Tobacco Use Smoking status: Never Smokeless tobacco: Never Substance Use Topics Alcohol use: Never Past Surgical History History reviewed. No pertinent surgical history. Medications Medications FENTanyl PF (SUBLIMAZE (PF)) injection 50 mcg (50 mcg Slow IV Push Refused 07/17/232144) clindamycin in 5 % dextrose (CLEOCIN) 900 mg/50 mL IV piggyback RTU 900 mg (0 mg IV Piggyback Stopped 07/17/232200) acetaminophen (TYLENOL) tablet 1,000 mg (1,000 mg Oral Given 07/17/232143) Allergies Allergies Allergen Reactions Amoxicillin Rash Review of Systems Review of Systems Constitutional: Negative. HENT: Negative. Eyes: Negative. Respiratory: Negative. Breasts: Negative. Cardiovascular: Negative. Gastrointestinal: Negative. Genitourinary: Negative. Musculoskeletal: Negative. Skin: Negative. Facial swelling Neurological: Negative. Psychiatric/Behavioral: Negative. Endocrine: Endocrine negative Physical Exam BP 138/78 | Pulse 74 | Temp 36.9 ?C (98.4 ?F) | Resp 16 | Ht 1.854 m (6' 1") | Wt 131.5 kg (290 lb)| SpO2 98% | BMI 38.26 kg/m? Physical Exam Vitals and nursing note reviewed. Constitutional: General: He is not in acute distress. Appearance: He is well-developed. He is not ill-appearing. HENT: Head: Normocephalic and atraumatic. Comments: Facial swelling, small laceration to nose Right Ear: Ear canal and external ear normal. Left Ear: Ear canal and external ear normal. Nose: Nose normal. No congestion or rhinorrhea. Mouth/Throat: Mouth: Mucous membranes are moist. Pharynx: Oropharynx is clear. No oropharyngeal exudate or posterior oropharyngeal erythema. Eyes: General: Right eye: No discharge. Left eye: No discharge. Conjunctiva/sclera: Conjunctivae normal. Pupils: Pupils are equal, round, and reactive to light. Cardiovascular: Rate and Rhythm: Normal rate and regular rhythm. Pulses: Normal pulses. Heart sounds: Normal heart sounds. No murmur heard. No friction rub. Pulmonary: Effort: Pulmonary effort is normal. No respiratory distress. Breath sounds: Normal breath sounds. No stridor. No wheezing or rhonchi. Abdominal: General: Bowel sounds are normal. There is no distension. Palpations: Abdomen is soft. There is no mass. Tenderness: There is no abdominal tenderness. Hernia: No hernia is present. Musculoskeletal: General: No swelling, tenderness, deformity or signs of injury. Normal range of motion. Cervical back: Normal range of motion and neck supple. No rigidity or tenderness. Skin: General: Skin is warm and dry. Capillary Refill: Capillary refill takes less than 2 seconds. Coloration: Skin is not jaundiced or pale. Findings: No bruising or erythema. Neurological: General: No focal deficit present. Mental Status: He is alert and oriented to person, place, and time. Cranial Nerves: No cranial nerve deficit. Sensory: No sensory deficit. Motor: No weakness. Coordination: Coordination normal. Psychiatric: Mood and Affect: Mood normal. Behavior: Behavior normal. Thought Content: Thought content normal. Judgment: Judgment normal. Labs and Studies Lab Results - No data to display CT HEAD WO CONTRAST Preliminary Result EXAM: CT HEAD WO CONTRAST HISTORY: 27 years-old Male; Head trauma, moderate-severe TECHNIQUE: Axial CT of the head was performed and reconstructed at 5 mm intervals. Coronal and sagittal reformatted images were generated. COMPARISON: None FINDINGS: The ventricles and cerebral sulci are normal in caliber and configuration. No hydrocephalus, midline shift or pathological extra-axial fluid collection is present. The basal cisterns are unremarkable. No acute intracranial hemorrhage or significant mass effect is visualized. No parenchymal attenuation abnormality is seen. The campbell-white matter differentiation is preserved. Right maxillary retention cyst. Partial opacification of the anterior ethmoid air cells likely blood products. No acute displaced calvarial fracture. Comminuted bilateral nasal bone fractures. Right orbital emphysema. Gas is seen tracking along the right supraorbital and nasal bones soft tissues. IMPRESSION No acute intracranial hemorrhage or mass effect. Bilateral nasal bone fractures. Please see same day CT Max face report for further details in regards to facial fractures. Preliminary Report Dictated by Resident: Dolly Almazan CT MAXILLOFACIAL/MANDIBLE WO CONTRAST Preliminary Result EXAM: CT MAXILLOFACIAL/MANDIBLE WO CONTRAST HISTORY: 27 years-old; Male; Facial trauma, blunt TECHNIQUE: Routine unenhanced CT of the maxilla and face was performed. Coronal and sagittal reformats were obtained. COMPARISON: none FINDINGS: Minimally displaced comminuted fractures of the bilateral frontal sinuses is seen with overlying soft tissue gas. Moderately displaced and comminuted bilateral nasal bone fractures with rightward deviation is seen. A comminuted fracture of the nasal septum with mild rightward deviation is also present (2:64). Nondisplaced fractures of the bilateral frontal processes is seen (2:60, 69). Soft tissue gas overlying the nose tracking to the right maxillary sinus is seen and likely posttraumatic. The orbits, globes, and other intraorbital structures are unremarkable. Moderate amount of right and trace left orbital emphysema is noted and likely posttraumatic. The maxilla, maxillary sinus infante, and pterygoid plates are intact. The zygomatic arches are intact. The mandible and temporomandibular joints are unremarkable. Scattered severe carious changes of the teeth is noted. Right maxillary retention cyst. Mucosal thickening of the left maxillary sinus. Partial opacification of the ethmoid air cells and nasal cavity may be blood products in the setting of trauma. IMPRESSION Bilateral frontal sinus fractures. Comminuted nasal bone and septum fractures involving the bilateral frontal processes with rightward deviation of the septum. 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 Opacification of the ethmoid air cells and nasal cavity likely blood natalee extends in the setting of trauma. Preliminary Report Dictated by Resident: Dolly Almazan Orders and Treatments Orders Placed This Encounter Procedures CT MAXILLOFACIAL/MANDIBLE WO CONTRAST CT HEAD WO CONTRAST Orders Placed This Encounter Medications clindamycin in 5 % dextrose (CLEOCIN) 900 mg/50 mL IV piggyback RTU 900 mg FENTanyl PF (SUBLIMAZE (PF)) injection 50 mcg acetaminophen (TYLENOL) tablet 1,000 mg Patient's Medications START taking these medications No medications on file CONTINUE taking these medications which have NOT CHANGED ALBUTEROL 90 MCG/ACTUATION INHALER INHALE 1 PUFF BY MOUTH EVERY 6 HOURS NEEDED SYMBICORT 160-4.5 MCG/ACTUATION INHALER 2 Puffs 2 (two) times daily. START taking Modified Medications as Prescribed No medications on file STOP taking these medications No medications on file Procedures Procedures MDM & Notes Patient was evaluated for an emergency medical condition related to Other (Nose injury; right eye swollen ) . History and/or review of systems is limited by:History limited: None. Medical Decision Making 27 yo man comes to the ED complaining of nose injury. Patient was working on his travel trailer andaccidentally got hit in the face sustaining a small laceration to nose and swelling to face. No LOC, reports previous injury to nose. No other injuries. DDx facial contusion, nose laceration Problems Addressed: Facial injury, initial encounter: acute illness or injury Amount and/or Complexity of Data Reviewed Radiology: ordered and independent interpretation performed. Details: Multiple facial fractures Discussion of management or test interpretation with external provider(s): Multiple facial fractures on CT maxillofacial IV Clindamycin in the ED. Discussed with Face Trauma Dr. Stern Patient will be transferred to [facility] for Ophthalmology and Face trauma evaluation. Risk OTC drugs. Prescription drug management. ED Course as of 07/17/23 2336 Ammy Jul 17, [id number] IMPRESSION ? Bilateral frontal sinus fractures. ? Comminuted nasal bone and septum fractures involving the bilateral frontal processes with rightward deviation of the septum. ? 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 ? Opacification of the ethmoid air cells and nasal cavity likely blood natalee extends in the setting of trauma. ? [JJ] ED Course User Index [JJ] Cherie Mendez MD Diagnosis/Impression as of 07/17/232335 Facial injury, initial encounter Open fracture of other facial bones, unspecified laterality, initial encounter Case discussed with: Dr. Stern Barriers & Social Determinants of Healthcare: unknown Limitations to patient care and compliance: none. Assessment: Ced Castillo is a 27 year old male presenting for single complaint(s) listed below and mentioned within the note. The patient has acute condition(s). Follow up with providers listed below for furtherevaluation and management. Return precautions given if symptoms worsen as documented in the discharge instructions. History, physical exam findings, results of visit, differential diagnosis, medication regimens and plan of future care have been considered. Additional MDM may be found in the ED course. Differentialdiagnosis considered and final disposition made based on information gathered during evaluation andmay not be completely ruled out or specifically listed. Vital signs were rechecked before final disposition and determined to be stable. Diagnoses ICD-10-CM 1. Facial injury, initial encounter S09.93XA 2. Open fracture of other facial bones, unspecified laterality, initial encounter S02.80XB Disposition and Condition ED Disposition ED Disposition Disch - Home Condition Stable Comment -- Patient's Medications START taking these medications No medications on file CONTINUE taking these medications which have NOT CHANGED ALBUTEROL 90 MCG/ACTUATION INHALER INHALE 1 PUFF BY MOUTH EVERY 6 HOURS NEEDED SYMBICORT 160-4.5 MCG/ACTUATION INHALER 2 Puffs 2 (two) times daily. START taking Modified Medications as Prescribed No medications on file STOP taking these medications No medications on file Cherie Mendez MD, FACEP, FAAEM [employer] Manager of Emergency and Internal Medicine [facility], [facility] #[id number] Cherie Mendez MD 07/17/232335 [facility]
[2024-07-23] MEDS ORDERED: methocarbamoL 500 MG TAB ONE (14:26)
--- NOTE | 2024-07-23 14:52 | RAD REPORT ---
EXAM DESCRIPTION: CT - CTHCSPWOC - 07/23/2024 2:40 pm CLINICAL HISTORY: Trauma, head and neck injury. fall COMPARISON: No comparisons TECHNIQUE: Axial 5 mm thick images of the head were obtained. Axial 2 mm thick images of the cervical spine were obtained with sagittal and coronal reconstruction images generated and reviewed. All CT scans are performed using dose optimization technique as appropriate and may include automated exposure control or mA/KV adjustment according to patient size. FINDINGS: CT HEAD WITHOUT CONTRAST: No acute hemorrhage, hydrocephalus or extra-axial collection is identified.No areas of brain edema or midline shift. 3 cm mucous retention cyst versus polyp right maxillary antrum.The paranasal sinuses and mastoids oth erwise clear.The calvarium is intact. CT CERVICAL SPINE WITHOUT CONTRAST: No fracture or subluxation.No prevertebral soft tissues swelling is identified. IMPRESSION: No acute intracranial or cervical spine findings.
--- NOTE | 2024-07-23 14:58 | RAD REPORT ---
EXAM DESCRIPTION: CT - Spine Lumbar Wo Con - 07/23/2024 2:40 pm CLINICAL HISTORY: Radiculopathy. fall COMPARISON: No comparisons TECHNIQUE: Axial noncontrast CT imaging of the lumbar spine was performed with coronal and sagittal re-formatted images. All CT scans are performed using dose optimization technique as appropriate and may include automated exposure control or mA/KV adjustment according to patient size. FINDINGS: No acute lumbar spine fracture seen. No aggressive marrow pattern or malalignment. Paraspinal tissues are normal in thickness. No paraspinal abscess or hematoma seen. Intervertebral disc disease assessment is inherently limited by CT. Within these limitations, no high -grade canal stenosis suspected. Mild posterior disc bulges are present most notable at L2-3. IMPRESSION: No acute abnormality affecting the lumbar spine seen Mild spondylosis is noted, most notable at L2-3.
--- NOTE | 2024-07-23 15:26 | EDPHYS ---
Physician Documentation [facility] Name: Ced Castillo Age: 28 yrs Sex: Male : 1995 Arrival Date: 07/23/2024 Time: 13:32 Bed IW1 Private MD: ED Physician Matty Santos HPI: 07/23 14:29 This 28 yrs old Male presents to ER via Ambulatory with complaints of Fall ec2 Injury. 14:29 Patient arrives today for evaluation of right-sided body pain. Patient reports that he ec2 had fallen from a elevated height 2 days ago. No LOC, not on blood thinners, complaining of neck pain. Reports that he has paresthesias throughout the right face, neck, upper extremity as well as lower extremity. Complaining of some neck pain and maybe some questionable low back pain. . Historical: - Allergies: 14:01 Amoxicillin; db - PMHx: 14:01 Asthma; db - PSHx: 14:01 Adenoid excision; db - Immunization history:: Adult Immunizations unknown. - Infectious Disease History:: Denies. - Social history:: Smoking status: Patient denies any tobacco usage or history of. ROS: 14:29 Constitutional: as per hpi ec2 Exam: 14:29 Constitutional: GEN: NAD Head: atraumatic Eyes: EOMI Ears: External ears are ec2 normal. CV: regular rate LUNGS: no respiratory distress ABD: non-distended SKIN: no evidence of rashes MSK: No C and L-spine TTP without deformities or crepitus or step-offs appreciated. Neuro:, Intact neurologic examination. Sensation intact throughout. Vital Signs: 13:59 BP 126 / 83; Pulse 80; Resp 18; Temp 97; Pulse Ox 80% ; db Nikolay Coma Score: 14:24 Eye Response: spontaneous(4). Motor Response: obeys commands(6). Verbal Response: db oriented(5). Total: 15. Trauma Score (Adult): 14:24 Eye Response: spontaneous(1); Verbal Response: oriented(1); Motor Response: obeys db commands(2); Systolic BP: > 89 mm Hg(4); Respiratory Rate: 10 to 29 per min(4); Bullhead Score: 15; Trauma Score: 12 MDM: 13:57 Patient medically screened. ec2 14:29 Data reviewed: vital signs. ED course: Patient arrives today for evaluation of ec2 right-sided body pain as well as right-sided paresthesias. Examination remarkable for well-appearing nontoxic dividual's otherwise in no acute distress with a reassuring neurologic examination. Will obtain CT scan of the head and C-spine as well as L-spine. Differential includes bony fracture, neck contusion, L spine contusion.. 15:25 ED course: CT scan of the head and C-spine, CT scan of the L-spine showed no acute ec2 traumatic process. Doubt true spinal cord pathology given reassuring examination. Will check patient comfortable. Will discharge home. Return precautions given.. 07/23 14:03 Order name: CT Head C Spine; Complete Time: 15:25 ec2 07/23 14:03 Order name: CT Lumbar Spine Wo Con; Complete Time: 15:25 ec2 Administered Medications: 14:32 Drug: Methocarbamol PO 500 mg PO once Route: PO; db 15:49 Follow up: Response: No adverse reaction db Disposition Summary: 07/23/24 15:26 Discharge Ordered Notes: Location: Home ec2 Condition: Stable ec2 Diagnosis - Parasthesias ec2 Followup: ec2 - With: Private Physician - When: - Reason: Re-evaluation by your physician Discharge Instructions: - Discharge Summary Sheet ec2 - Acute Back Pain, Adult ec2 Forms: - Medication Reconciliation Form ec2 - Antibiotic Education ec2 - Prescription Opioid Use ec2 - Patient Portal Instructions ec2 - Leadership Thank You Letter ec2 Prescriptions: - gabapentin 300 mg Oral capsule - take 1 capsule ORAL route 2 times per day; 30 capsule; Refills: 0, Product ec2 Selection Permitted - methocarbamol 500 mg Oral tablet - take 2 tablets ORAL route 4 times per day; 20 tablet; Refills: 0, Product ec2 Selection Permitted Signatures: Dispatcher [employer] Thania Salamanca RN RN db Corral, Edwin, MD MD ec2
--- NOTE | 2024-07-23 15:26 | ER ---
Nurse's Notes [facility] Name: Ced Castillo Age: 28 yrs Sex: Male : 1995 Arrival Date: 07/23/2024 Time: 13:32 Bed IW1 Private MD: Diagnosis: Parasthesias Presentation: 07/23 13:59 Chief complaint: Patient states: STATES FELL OFF BACK OF PORCH 3 DAYS AGO. NOW HAS db RIGHT NECK, RIGHT ARM AND RIGHT LEG PAIN AND STIFFNESS. Coronavirus screen: Client denies travel out of the [place] in the last 14 days. At this time, the client does not indicate any symptoms associated with coronavirus-19. Ebola Screen: Patient negative for fever greater than or equal to 101.5 degrees Fahrenheit, and additional compatible Ebola Virus Disease symptoms Patient denies exposure to infectious person. Patient denies travel to an Ebola-affected area in the 21 days before illness onset. No symptoms or risks identified at this time. Initial Sepsis Screen: Does the patient meet any 2 criteria? No. Patient's initial sepsis screen is negative. Does the patient have a suspected source of infection? No. Patient's initial sepsis screen is negative. Risk Assessment: Do you want to hurt yourself or someone else? Patient reports no desire to harm self or others. Onset of symptoms was July 23, 2024. Mechanism of Injury: Fall 10 TO 12 FEET. 13:59 Method Of Arrival: Ambulatory db 13:59 Acuity: HIMANSHU 3 db Triage Assessment: 14:01 General: Appears in no apparent distress. uncomfortable, Behavior is calm, cooperative. db Pain: Complains of pain in , back, right arm and right leg. Neuro: Level of Consciousness is awake, alert, obeys commands. Historical: - Allergies: 14:01 Amoxicillin; db - PMHx: 14:01 Asthma; db - PSHx: 14:01 Adenoid excision; db - Immunization history:: Adult Immunizations unknown. - Infectious Disease History:: Denies. - Social history:: Smoking status: Patient denies any tobacco usage or history of. Screenin:24 Abuse screen: Denies threats or abuse. Denies injuries from another. Tuberculosis db screening: No symptoms or risk factors identified. 15:48 [facility] ED Fall Risk Assessment (Adult) History of falling in the last 3 months, db including since admission Yes- single mechanical fall (1 pt) Confusion or Disorientation No (0 pts) Intoxicated or Sedated No (0 pts) Impaired Gait No (0 pts) Mobility Assist Device Used No (0 pt) Altered Elimination No (0 pt) Score/Fall Risk Level 0 - 2 = Low Risk Oriented to surroundings, Maintained a safe environment. Nutritional screening: No deficits noted. Primary Survey: 14:32 NO uncontrolled hemorrhage observed. A: The client is awake and alert. The airway is db patent. The client is alert. Airway: patent. Breathing/Chest: Spontaneous respiratory effort, equal unlabored respirations, breath sounds clear bilaterally, regular pattern, symmetrical chest rise and fall. Circulation: No external hemorrhage present. Regular and strong central pulse, skin warm/dry/normal color. Disability Client is alert. Reassessment Alertness and Airway: Awake and alert. The airway is patent. Breathing: Spontaneous respiratory effort, equal unlabored respirations, breath sounds clear bilaterally, regular pattern with symmetrical chest rise and fall. Circulation: No external hemorrhage noted. Regular and strong central pulse, skin warm/dry/normal color. Disability: Alert. Assessment: 14:24 Reassessment:. db 14:24 Reassessment: Patient appears in no apparent distress at this time. Patient and/or db family updated on plan of care and expected duration. Pain level reassessed. Patient is alert, oriented x 3, equal unlabored respirations, skin warm/dry/pink. General: Appears in no apparent distress. uncomfortable, Behavior is calm, cooperative. 15:48 Reassessment: Patient appears in no apparent distress at this time. Patient and/or db family updated on plan of care and expected duration. Pain level reassessed. Patient is alert, oriented x 3, equal unlabored respirations, skin warm/dry/pink. 15:48 Reassessment: Patient states feeling better. db Vital Signs: 13:59 BP 126 / 83; Pulse 80; Resp 18; Temp 97; Pulse Ox 80% ; db Nikolay Coma Score: 14:24 Eye Response: spontaneous(4). Motor Response: obeys commands(6). Verbal Response: db oriented(5). Total: 15. Trauma Score (Adult): 14:24 Eye Response: spontaneous(1); Verbal Response: oriented(1); Motor Response: obeys db commands(2); Systolic BP: > 89 mm Hg(4); Respiratory Rate: 10 to 29 per min(4); Ketchum Score: 15; Trauma Score: 12 ED Course: 13:41 Patient arrived in ED. mg5 13:47 Matty Santos MD is Attending Physician. ec2 14:01 Triage completed. db 14:01 Arm band placed on Patient placed. db 14:[address] db 14:32 Thania Miner, RN is Primary Nurse. db 14:42 CT Head C Spine In Process Unspecified. EDMS 14:42 CT Lumbar Spine Wo Con In Process Unspecified. EDMS 15:48 Patient has correct armband on for positive identification. Provided Education on: db DISCHARGE AND FOLLOWUP. 15:48 No provider procedures requiring assistance completed. Patient did not have IV access db during this emergency room visit. Administered Medications: 14:32 Drug: Methocarbamol PO 500 mg PO once Route: PO; db 15:49 Follow up: Response: No adverse reaction db Medication: 15:48 VIS not applicable for this client. db Outcome: 15:26 Discharge ordered by . ec2 15:48 Discharged to home ambulatory, db 15:48 Condition: stable 15:48 Discharge instructions given to patient, Instructed on discharge instructions, Prescriptions given X 1, 15:49 Patient left the ED. db Signatures: Dispatcher [employer] Thania Salamanca, Charlotte Pascual RN mg5 Matty Santos MD MD ec2
[2024-07-23 15:53] VITALS: BP 126/83; TEMP 97; O2SAT 80
== END 2024-07-23 15:49 | disposition home or self-care (01) ==
LOC: ER 13:32
DX: R20.2 Paresthesia of skin (principal); M54.2 Cervicalgia; M54.50 Low back pain, unspecified
CPT/HCPCS: 70450; 72125; 72131; 99284